=== PATIENT | female | born 1940 | race Caucasian/White ===

== ENCOUNTER 2016-10-31 08:49 | Emergency (ER) | payer OTHER, MEDICARE ==
--- NOTE | 2016-10-31 10:07 | DIAGNOSTIC IMAGING REPORT ---
PROCEDURE: XR CHEST 1 VIEW INDICATION: CHEST PAIN, initial encounter TECHNIQUE: Portable AP view ( 09:19 a.m). COMPARISON: None. FINDINGS: Lungs are clear. Heart and mediastinum are normal. Thorax is normal. IMPRESSION: 1. Negative chest.
--- NOTE | 2016-10-31 12:26 | ED NURSING NOTES ---
Clinical Report - Nurses [facility] [address] [place] [address] 10/31/2016 8:51 Patient: ZAMZAM EARL TRIAGE Triage time 08:45. Acuity: LEVEL 3. Chief Complaint: (Substernal chest pressure. Onset on waking this am, also SOB. This episode lasted approx 1 hour.). 09:10. SEPSIS SCREEN: Sepsis Screen. Negative (no infection suspected/documented). MAY COMA SCORE: May Coma Scale: 15- eyes open spontaneously (4); best verbal response- oriented x 4 (5); best motor response- obeys commands (6). --09:13 Oliver Vail R.N. 08:59 10/31/16. BP: 180/82. HR: 58. RR: 16. O2 saturation: 98% on room air. Temp: 97.7 F (oral). Pain level now: 11/28. --09:13 Oliver Vail R.N. Weight: 53.5 kg stated. Height/Length: 63 inches Per Patient. BMI: 20.9. --09:08 Oliver Vail R.N. Medications Lisinopril Oral (Tablet 40 mg) 1 tablet, daily. --09:02 Oliver Vail R.N. Aspirin Oral 81mg. --09:02 Oliver Vail R.N. Carvedilol Oral (Tablet 25 mg) 1 tablet, BID. --09:14 Oliver Vail R.N. Lansoprazole Oral (Capsule Delayed Release 15 mg) 1 capsule, daily (15mg). --09:46 Oliver Vail R.N. HydrALAZINE HCl Oral (Tablet 10 mg) 1 tablet, TID. --09:48 Oliver Vail R.N. Rosuvastatin Calcium Oral (Tablet 5 mg) 1 tablet, at bedtime. --09:49 Oliver Vail R.N. Levothyroxine Sodium Oral (Tablet 50 mcg) 1 tablet, daily. --09:50 Oliver Vail R.N. FLUoxetine HCl Oral (Capsule 10 mg) 1 capsule, daily. --09:51 Oliver Vail R.N. Cardizem LA Oral (Tablet Extended Release 24 Hour 120 mg) 1 tablet, daily. --09:52 Oliver Vail R.N. Centrum Silver Oral. --09:53 Oliver Vail R.N. The following entry was struck and corrected by Oliver Vail R.N., 09:48 (10/31/16) Reason for correction - other(correction). <<STRICKEN ENTRY-- Lisinopril Oral. --09:02 Oliver Vail R.N. --END STRIKE>> The following entry was struck and corrected by Oliver Vail R.N., 09:47 (10/31/16) Reason for correction - other(correction). <<STRICKEN ENTRY-- Carvedilol Oral. --09:14 Oliver Vail R.N. --END STRIKE>> The following entry was struck and corrected by Oliver Vail R.N., 09:47 (10/31/16) Reason for correction - other(correction). <<STRICKEN ENTRY-- Aspirin Oral. --09:02 Oliver Vail R.N. --END STRIKE>>. Allergies Meds - Can't Remember. --09:54 Oliver Vail R.N. History Arrived by EMS, and (A47). Historian: patient. 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 SOCIAL HX: Never smoker. No alcohol use or drug use. ABUSE ASSESSMENT: No report of abuse. --09:13 Oliver Vail R.N. PROBLEMS: NSTEMI. Hypertension. --09:07 Oliver Vail R.N. Chronic renal disease. --09:11 Oliver Vail R.N. ADDITIONAL SURGERIES: Gallbladder Surgery. Hysterectomy. Thyroid Surgery. --09:07 Oliver Vail R.N. The following entry was struck by Ihsan Townsend MD, 11:12 Reason - other <<STRICKEN ENTRY-- Cardiac Catheterization. --11:12 Ihsan Townsend MD --END STRIKE>>. Interventions ID band on patient. To treatment room. --09:13 Oliver Vail R.N. PHYSICAL ASSESSMENT 09:14 10/31/16. To room via stretcher. GENERAL / NEURO / PSYCH: Alert. Oriented X 4. Appears in no acute distress. HEENT: Mucous membranes are pink. RESPIRATORY: Respirations not labored. Chest wall tenderness (2/10 substernal chest pressure). Breath sounds within normal limits. CVS: Normal sinus rhythm noted. Heart sounds within normal limits. Pulses within normal limits. Capillary refill less than 2 seconds. GI / : Abdomen soft and nontender. EXTREMITIES: No lower extremity edema. SKIN: Skin is warm and dry. Normal skin turgor. Skin is non-tender. --09:16 Oliver Vail R.N. NURSING PROGRESS NOTES 09:00 10/31/2016 Site #1 started via IV in the left wrist with an 20g angiocath, with aseptic technique and good blood return; one attempt. Blood drawn: rainbow set. Labeled in the presence of the patient and sent to the lab. Saline lock flushed with 10 mL saline. --09:40 Oliver Vail R.N. EKG time: (09:05). EKG was performed by a tech and shown to the ED physician. --10:01 Jaleesa Duran late entry -09:16. Cardiac rhythm: sinus bradycardia. athletic monitor, pulse oximeter and NIBP monitor placed on patient; compliance monitor- Lead II and V5; monitor alarms on. Patient gowned. Head of bed elevated. Reassurance given. Two patient identifiers checked. Call light placed in reach. Side rails up x 2. Bed placed in lowest position. Brakes of bed on. Patient ready for evaluation- chart flagged. --10:27 Oliver Vail R.N. 09:00 10/31/16. BP: 173/60. HR: 63. RR: 16. O2 saturation: 98% on room air. Pain level now: 0/10. --10:28 Oliver Vail R.N. 09:30 10/31/16. BP: 174/62. HR: 59. RR: 17. O2 saturation: 99% on room air. Pain level now: 0/10. --10:31 Oliver Vail R.N. 10:30 10/31/16. BP: 165/59. HR: 59. RR: 15. O2 saturation: 98% on room air. Pain level now: 0/10. --10:32 Oliver Vail R.N. Patient ID band checked for patient name: patient confirmed. Instructions provided to collect clean catch urine and patient verbalized understanding. Clean catch urine collected with return of yellow-colored clear urine; sample sent to lab for urinalysis and culture. Specimen labeled in the presence of the patient. --11:43 Divine Sullivan R.N. 11:00 10/31/16. BP: 167/68. HR: 67. RR: 15. O2 saturation: 99% on room air. Pain level now: 0/10. --12:18 Oliver Vail R.N. 11:10/31/16. BP: 186/64. HR: 60. RR: 15. O2 saturation: 97% on room air. Pain level now: 0/10. --12:18 lOiver Vail R.N. 12:10/31/16. BP: 176/64. HR: 59. RR: 18. O2 saturation: 94% on room air. Pain level now: 0/10. --12:19 Oliver Vail R.N. 12:10/31/16. BP: 167/56. HR: 55. RR: 18. O2 saturation: 95% on room air. Pain level now: 0/10. --14:08 Oliver Vail R.N. 13:10/31/16. BP: 178/73. HR: 55. RR: 14. O2 saturation: 96% on room air. Pain level now: 0/10. --14:09 Oliver Vail R.N. 13:10/31/16. BP: 185/60. HR: 64. RR: 16. O2 saturation: 96% on room air. Pain level now: 0/10. --14:09 Oliver Vail R.N. 14:14 10/31/16. Cardiac rhythm: normal sinus rhythm. athletic monitor, pulse oximeter and NIBP monitor placed on patient; compliance monitor- Lead II and V5; monitor alarms on. Head of bed elevated. Reassurance given. The patient reports no complaints and she is calm and resting quietly. ( FYI - Pt has taken the following of her meds today: Carvedilol, Lisinopril, Hydralazine, Fluoxetine.). Call light placed in reach. Side rails up x 2. Bed placed in lowest position. Brakes of bed on. --14:16 Oliver Vail R.N. 14:00 10/31/16. BP: 189/70. HR: 63. RR: 16. O2 saturation: 98% on room air. Pain level now: 0/10. --15:32 Oliver Vail R.N. 14:30 10/31/16. BP: 195/63. HR: 58. RR: 14. O2 saturation: 96% on room air. Pain level now: 0/10. --15:35 Oliver Vail R.N. 17:20 10/31/2016 Hydralazine IVP 10 mg given over 5 minute(s) via site #1. Allergies verified and confirmed 5 rights. IV patency established. IV site checked: no pain, redness, or swelling. IV flushed thoroughly pre- and post-medication administration. IVP given by RN. --17:47 Oliver Vail R.N. 17:47 10/31/2016 Hydralazine IVP Response: no adverse reaction symptoms have improved. --17:47 Oliver Vail R.N. late entry -16:30. ( FYI - Pt took her own 1630 dose of Hydralazine and Carvedilol per MD.). --17:50 Oliver Vail R.N. 17:30 10/31/16. BP: 135/53. HR: 81. RR: 18. O2 saturation: 97% on room air. Pain level now: 0/10. --17:51 Oliver Vail R.N. 17:52 10/31/16. ( Pt ate 30% of her dinner.). --17:52 Oliver Vail R.N. 17:00 10/31/16. BP: 174/59. HR: 62. RR: 15. O2 saturation: 97% on room air. Pain level now: 0/10. --17:53 Oliver Vail R.N. 16:00 10/31/16. BP: 202/63. HR: 69. RR: 16. O2 saturation: 97% on room air. Pain level now: 0/10. --17:54 Oliver Vail R.N. 16:30 10/31/16. BP: 182/95. HR: 72. RR: 18. O2 saturation: 97% on room air. Pain level now: 0/10. --17:55 Oliver Vail R.N. 15:00 10/31/16. HR: 61. RR: 15. O2 saturation: 97% on room air. Pain level now: 0/10. --17:56 Oliver Vail R.N. DISPOSITION / DISCHARGE 14:50. Report was given to a nurse via a phone call. Report included patient's care, treatment, medications, reviewed medication reconcilliation, and condition (including any recent changes or anticipated changes). All questions were answered. Report was acknowledged. (EDWARD Lora). --14:57 Oliver Vail R.N. 17:45 10/31/16. Report was given to a nurse via a phone call. Report included patient's care, treatment, medications, reviewed medication reconcilliation, and condition (including any recent changes or anticipated changes). All questions were answered. Report was acknowledged. --17:45 Oliver Vail R.N. 18:24 10/31/2016 Site #[address] upon transfer; patent, no pain and no signs of infection or infiltration. Good blood return present. Flushed with 10 mL saline; flushes easily. --18:25 Oliver Vail R.N. 18:25 10/31/16. Departure time: 1824. Cardiac rhythm: normal sinus rhythm. Condition at departure: improved and stable. Transferred to [facility]. Summary of care provided to transport team and transfer facility via paper (1824). Transported via ambulance by nurse with monitor, defibrillator, IV, O2 and emergency medications (NWA). ( NWA here at 1800 for transport.). --18:25 Oliver Vail R.N. 18:00 10/31/16. BP: 112/48. HR: 76. RR: 16. O2 saturation: 97% on room air. Temp: 97.7 F (oral). Pain level now: 0/10. --18:25 Oliver Vail R.N. late entry -18:25. Transferred ([facility] Room A415.). --18:45 Oliver Vail R.N. Locked/Released at 10/31/2016 18:46 by Oliver Vail R.N.
--- NOTE | 2016-10-31 12:26 | ED ORDER SUMMARY ---
..... Patient: ZAMZAM EARL OrderSheet [facility] VisitID: [id number] [address] [place] [address] 76y, F Registration Date/Time: 10/31/2016 ORDER SHEET Weight: 53.5 kg (stated) Allergies: Meds - Can't Remember, IV Contrast GENERAL ORDERS: Chest 1V Urgent (09:10/31/2016 Blake COWART) (Ack 9:34 Saranya) (18:46 JSimbeck R.N.) Hub Cutter Apprentice (Continuous) (:10/31/2016 Blake COWART) (Ack 9:34 Saranya) (9:40 JSimbeck R.N.) Cardiac Panel Stat (:10/31/2016 Blake COWART) (Ack 9:34 Saranya) (9:41 JSimbeck R.N.) BNP Urgent (:10/31/2016 Blake COWART) (Ack 9:34 Saranya) (9:41 JSimbeck R.N.) Oxygen (2 L/min) (NC) (:10/31/2016 Blake COWART) (Ack 9:34 Saranya) (9:40 JSimbeck R.N.) Pulse oximeter (:10/31/2016 Blake COWART) (Ack 9:34 Saranya) (9:40 JSimbeck R.N.) EKG - ER Stat (:10/31/2016 Blake COWART) (9:33 RKaruga) D-Dimer Urgent (09:10/31/2016 Blake COWART) (Ack 9:34 Saranya) (9:41 JSimbeck R.N.) TSH Urgent (11:10/31/2016 Wendy COWART) (Ack 11:58 LTapper) (Cancelled: Duplicate Order12:00 LTapper) TSH Urgent (11:10/31/2016 Wendy COWART) (Collected 11:59 LTapper) (15:39 JSimbeck R.N.) MEDICATION ORDERS: IV FLUIDS: IV Saline Lock (:10/31/2016 Blake COWART) (9:40 JSimbeck R.N.) Hydralazine IV 10 mg (NOW) (17:11 10/31/2016 Luzma Garrido verbal order read back to Dawson COWART) (17:47 Luzma Garrido) ORDER SHEET NOTES: [Electronically signed by Oliver Vail R.N. (18:46 10/31/2016)] [Electronically signed by Ihsan Townsend MD (09:39 11/01/2016)] [Electronically locked/signed by Oliver Vail R.N. (18:46 10/31/2016)]
--- NOTE | 2016-10-31 12:26 | ED CLINICAL REPORT ---
Clinical Report - Physicians/Mid Levels [facility] [address] [place] [address] 10/31/2016 8:51 Patient: ZAMZAM EARL Time Seen: 09:08. Arrived- By ambulance. Historian- patient. History limited by vague historian. HISTORY OF PRESENT ILLNESS Chief Complaint: CHEST PAIN. At its maximum, severity described as 6 / 10. When seen in the E.D., it was gone. Modifying factors- worsened by exertion. It is described as pressure and it is described as located in the central chest area and radiating to the neck. This started today at about 5:30 AM; Lasted about 50 minutes and is now gone. It was gradual in onset. Onset during sleep. No nausea, vomiting or diaphoresis. (ASA in the field). She has had mild difficulty breathing. Similar symptoms previously: Once. Diagnosis: MO. ( She had a similar event in July 2016 and she had a "slight heart attack"). REVIEW OF SYSTEMS The patient has had chills. No fever, sweats, calf pain, pedal edema or palpitations. No abdominal pain, black stools, bloody stools, nausea or vomiting. She has had a mild nonproductive cough. She has had mild constipation (chronically). She has had incontinence of urine (for several months - She attributes this to her medicine). All systems otherwise negative, except as recorded above. PAST H[place] Problems: Hypothyroidism. Chronic renal disease. NSTEMI. Hypertension. Additional Surgeries: Gallbladder Surgery. Hysterectomy. Thyroid Surgery. Medications: Centrum Silver Oral. Cardizem LA Oral (Tablet Extended Release 24 Hour 120 mg) 1 tablet, daily. FLUoxetine HCl Oral (Capsule 10 mg) 1 capsule, daily. Levothyroxine Sodium Oral (Tablet 50 mcg) 1 tablet, daily. Rosuvastatin Calcium Oral (Tablet 5 mg) 1 tablet, at bedtime. HydrALAZINE HCl Oral (Tablet 10 mg) 1 tablet, TID. Lansoprazole Oral (Capsule Delayed Release 15 mg) 1 capsule, daily (15mg). Carvedilol Oral (Tablet 25 mg) 1 tablet, BID. Aspirin Oral 81mg. Lisinopril Oral (Tablet 40 mg) 1 tablet, daily. Allergies: IV Contrast. Meds - Can't Remember. SOCIAL HISTORY Never smoker. No alcohol use or drug use. Residence: [place]. FAMILY HISTORY Hypertension in first-degree relative (mother and father) and grandparent; stroke in first-degree relative (mother); cancer in first-degree relative (father). ADDITIONAL NOTES The nursing notes have been reviewed. PHYSICAL EXAM Vital Signs: 10/31/2016 08:59 BP: 180/82. HR: 58. RR: 16. O2 saturation: 98%. Temp: 97.7 F. Pain level now: 11/28. Have been reviewed. Appearance: Alert. No acute distress. She appears frail and elderly. Eyes: Pupils equal, round and reactive to light. ENT: Pharynx normal. Neck: Normal inspection. Neck supple. No JVD. CVS: Normal heart rate and rhythm. Heart sounds normal. Respiratory: No respiratory distress. Breath sounds normal. Abdomen: Soft and nontender. Bowel sounds normal. No organomegaly. No mass. Back: Normal external inspection. No CVA tenderness. Skin: Skin warm and dry. Normal skin color. No rash. Normal skin turgor. Extremities: Extremities exhibit normal ROM. No calf tenderness. No lower extremity edema. LABS, X-RAYS, AND EKG EKG: No acute process. Rate: 59. Prior EKG unavailable. The study has been independently viewed by me. Chest X-ray: No acute disease. The X-rays were interpreted by the radiologist and contemporaneously by me. Laboratory Tests: CBC w Diff: (JOSE LUIS: 10/31/2016 08:50) ( MsgRcvd 10/31/2016 09:24) Final results Test Result Flag Units (Reference) WHITE BLOOD COUNT 12.1 H K/uL (4.5-11.5) RED BLOOD COUNT 4.71 M/uL (4.00-5.20) HEMOGLOBIN 14.3 gm/dL (12.0-16.0) HEMATOCRIT 43.4 % (36.0-46.0) MEAN CELL VOLUME 92 fL (80-100) MEAN CORPUSCULAR HGB 30 pg (26-34) MEAN CORPUSCULAR HGB CONC 33 g/dL (31-37) RED CELL DISTRIBUTION WIDTH 14.6 % (11.6-14.8) PLATELET COUNT 203 K/uL (150-400) NEUTROPHIL % 37.6 L % (50-75) LYMPH % 56.5 H % (25-40) MONO % 4.6 % (3-14) EOSINOPHIL % 1.0 % (0-4) BASOPHIL % 0.3 % (0-2) [id number]: (JOSE LUIS: 10/31/2016 08:50) ( [facility] 10/31/2016 09:25) Final results Test Result Flag Units (Reference) D-DIMER QUANTITATIVE 0.39 ug/mLFEU (0.27-0.52) The primary value of this quantitative assay relates toits negative predictive value (i.e. exclusion) of pulmonaryembolism/deep vein thrombosis/DIC.Elevated levels of d-dimer may also occur with:, age, cancer, inflammation, liver disease,post-op, infection, hematoma, coronary disease, peripheralarteriopathy, bleeding disorders and thrombolytic treatment.Results should be correlated with other clinical andradiological data.Testing Methodology: Latex Immunoassay BNP: (JOSE LUIS: 10/31/2016 08:50) ( [facility] 10/31/2016 10:14) Final results Test Result Flag Units (Reference) B-TYPE NATRIURETIC PEPTIDE 53.7 pg/ml (5-100) CHEM 13 PANEL: (JOSE LUIS: 10/31/2016 08:50) ( [facility] 10/31/2016 11:42) Final results Test Result Flag Units (Reference) GLUCOSE 121 H mg/dL (70-110) BUN 18 mg/dL (7-18) CREATININE 1.2 mg/dL (0.6-1.3) Estimated GFR 46.55 mL/min Estimated GFR- 56.42 mL/min Note: Persistent reduction over 3 months in eGFR<60 mL/min/1.73 m2 defines CKD. Patients with eGFR values>=60 mL/min/1.73 m2 may also have CKD if evidence ofpersistent proteinuria. Additional information may be foundat www.kidney.org. SODIUM 145 mmol/L (136-145) POTASSIUM 4.1 mmol/L (3.5-5.1) CHLORIDE 106 mmol/L (98-107) CARBON DIOXIDE 29 mmol/L (21-32) CALCIUM 8.8 mg/dL (8.5-10.1) TOTAL PROTEIN 7.0 g/dL (6.4-8.2) ALBUMIN 4.1 g/dL (3.3-5.0) BILIRUBIN, TOTAL 0.5 mg/dL (0.0-1.0) ALKALINE PHOSPHATASE 72 U/L (46-116) AST (SGOT) 18 U/L (15-37) ALT (SGPT) 25 U/L (12-78) MAGNESIUM 1.8 mg/dL (1.8-2.4) CPK 126 U/L (24-260) TROPONIN I 0.05 ng/mL (0.00-1.5) TROPONIN REFERENCE RANGE:<0.1 NEGATIVE0.1-1.5 INDETERMINANT>1.5 POSITIVE THYROID STIMULATING HORMONE 8.338 H uIU/mL (0.30-3.74) . PROGRESS AND PROCEDURES Course of Care: Patient is stable. Discussed case with hospitalist, (Vesta - She saw the patient in the ER). Reviewed test results and need for additional work-up. Agreed upon treatment plan, need for patient follow-up and decision to place in observation. Patient/family counseled. Old medical records ordered. Old records unavailable. Disposition orders written (in [facility]). Disposition: Admitted. Observation. CLINICAL IMPRESSION Chest pain. Hypothyroidism. (Electronically signed by Ihsan Townsend MD 11/01/2016 9:39)
--- NOTE | 2016-10-31 12:26 | ED ORDER SUMMARY ---
..... Patient: ZAMZAM EARL OrderSheet [facility] VisitID: [id number] [address] [place] [address] 76y, F Registration Date/Time: 10/31/2016 ORDER SHEET Weight: 53.5 kg (stated) Allergies: Meds - Can't Remember, IV Contrast GENERAL ORDERS: Chest 1V Urgent (09:10/31/2016 Blake COWART) (Ack 9:34 Saranya) (18:46 JSimbeck R.N.) Signal Maintainer (Continuous) (:10/31/2016 Blake COWART) (Ack 9:34 Saranya) (9:40 JSimbeck R.N.) Cardiac Panel Stat (:10/31/2016 Blake COWART) (Ack 9:34 Saranya) (9:41 JSimbeck R.N.) BNP Urgent (:10/31/2016 Blake COWART) (Ack 9:34 Saranya) (9:41 JSimbeck R.N.) Oxygen (2 L/min) (NC) (:10/31/2016 Blake COWART) (Ack 9:34 Saranya) (9:40 JSimbeck R.N.) Pulse oximeter (:10/31/2016 Blake COWART) (Ack 9:34 Saranya) (9:40 JSimbeck R.N.) EKG - ER Stat (:10/31/2016 Blake COWART) (9:33 RKaruga) D-Dimer Urgent (09:10/31/2016 Blake COWART) (Ack 9:34 Saranya) (9:41 JSimbeck R.N.) TSH Urgent (11:10/31/2016 Wendy COWART) (Ack 11:58 LTapper) (Cancelled: Duplicate Order12:00 LTapper) TSH Urgent (11:10/31/2016 Wendy COWART) (Collected 11:59 LTapper) (15:39 JSimbeck R.N.) MEDICATION ORDERS: IV FLUIDS: IV Saline Lock (:10/31/2016 Blake COWART) (9:40 JSimbeck R.N.) Hydralazine IV 10 mg (NOW) (17:11 10/31/2016 Luzma Garrido verbal order read back to Dawson COWART) (17:47 Luzma Garrido) ORDER SHEET NOTES: [Electronically signed by Oliver Vail R.N. (18:46 10/31/2016)] [Electronically signed by Ihsan Townsend MD (09:39 11/01/2016)] [Electronically locked/signed by Oliver Vail R.N. (18:46 10/31/2016)]
--- NOTE | 2016-10-31 12:26 | ED CLINICAL REPORT ---
Clinical Report - Physicians/Mid Levels [facility] [address] [place] [place] [address] 10/31/2016 8:51 Patient: ZAMZAM EARL Time Seen: 09:08. Arrived- By ambulance. Historian- patient. History limited by vague historian. HISTORY OF PRESENT ILLNESS Chief Complaint: CHEST PAIN. At its maximum, severity described as 6 / 10. When seen in the E.D., it was gone. Modifying factors- worsened by exertion. It is described as pressure and it is described as located in the central chest area and radiating to the neck. This started today at about 5:30 AM; Lasted about 50 minutes and is now gone. It was gradual in onset. Onset during sleep. No nausea, vomiting or diaphoresis. (ASA in the field). She has had mild difficulty breathing. Similar symptoms previously: Once. Diagnosis: NM. ( She had a similar event in July 2016 and she had a "slight heart attack"). REVIEW OF SYSTEMS The patient has had chills. No fever, sweats, calf pain, pedal edema or palpitations. No abdominal pain, black stools, bloody stools, nausea or vomiting. She has had a mild nonproductive cough. She has had mild constipation (chronically). She has had incontinence of urine (for several months - She attributes this to her medicine). All systems otherwise negative, except as recorded above. PAST HISTORY [place] Problems: Hypothyroidism. Chronic renal disease. NSTEMI. Hypertension. Additional Surgeries: Gallbladder Surgery. Hysterectomy. Thyroid Surgery. Medications: Centrum Silver Oral. Cardizem LA Oral (Tablet Extended Release 24 Hour 120 mg) 1 tablet, daily. FLUoxetine HCl Oral (Capsule 10 mg) 1 capsule, daily. Levothyroxine Sodium Oral (Tablet 50 mcg) 1 tablet, daily. Rosuvastatin Calcium Oral (Tablet 5 mg) 1 tablet, at bedtime. HydrALAZINE HCl Oral (Tablet 10 mg) 1 tablet, TID. Lansoprazole Oral (Capsule Delayed Release 15 mg) 1 capsule, daily (15mg). Carvedilol Oral (Tablet 25 mg) 1 tablet, BID. Aspirin Oral 81mg. Lisinopril Oral (Tablet 40 mg) 1 tablet, daily. Allergies: IV Contrast. Meds - Can't Remember. SOCIAL HISTORY Never smoker. No alcohol use or drug use. Residence: [place]. FAMILY HISTORY Hypertension in first-degree relative (mother and father) and grandparent; stroke in first-degree relative (mother); cancer in first-degree relative (father). ADDITIONAL NOTES The nursing notes have been reviewed. PHYSICAL EXAM Vital Signs: 10/31/2016 08:59 BP: 180/82. HR: 58. RR: 16. O2 saturation: 98%. Temp: 97.7 F. Pain level now: 11/28. Have been reviewed. Appearance: Alert. No acute distress. She appears frail and elderly. Eyes: Pupils equal, round and reactive to light. ENT: Pharynx normal. Neck: Normal inspection. Neck supple. No JVD. CVS: Normal heart rate and rhythm. Heart sounds normal. Respiratory: No respiratory distress. Breath sounds normal. Abdomen: Soft and nontender. Bowel sounds normal. No organomegaly. No mass. Back: Normal external inspection. No CVA tenderness. Skin: Skin warm and dry. Normal skin color. No rash. Normal skin turgor. Extremities: Extremities exhibit normal ROM. No calf tenderness. No lower extremity edema. LABS, X-RAYS, AND EKG EKG: No acute process. Rate: 59. Prior EKG unavailable. The study has been independently viewed by me. Chest X-ray: No acute disease. The X-rays were interpreted by the radiologist and contemporaneously by me. Laboratory Tests: CBC w Diff: (JOSE LUIS: 10/31/2016 08:50) ( MsgRcvd 10/31/2016 09:24) Final results Test Result Flag Units (Reference) WHITE BLOOD COUNT 12.1 H K/uL (4.5-11.5) RED BLOOD COUNT 4.71 M/uL (4.00-5.20) HEMOGLOBIN 14.3 gm/dL (12.0-16.0) HEMATOCRIT 43.4 % (36.0-46.0) MEAN CELL VOLUME 92 fL (80-100) MEAN CORPUSCULAR HGB 30 pg (26-34) MEAN CORPUSCULAR HGB CONC 33 g/dL (31-37) RED CELL DISTRIBUTION WIDTH 14.6 % (11.6-14.8) PLATELET COUNT 203 K/uL (150-400) NEUTROPHIL % 37.6 L % (50-75) LYMPH % 56.5 H % (25-40) MONO % 4.6 % (3-14) EOSINOPHIL % 1.0 % (0-4) BASOPHIL % 0.3 % (0-2) [id number]: (JOSE LUIS: 10/31/2016 08:50) ( [facility] 10/31/2016 09:25) Final results Test Result Flag Units (Reference) D-DIMER QUANTITATIVE 0.39 ug/mLFEU (0.27-0.52) The primary value of this quantitative assay relates toits negative predictive value (i.e. exclusion) of pulmonaryembolism/deep vein thrombosis/DIC.Elevated levels of d-dimer may also occur with:, age, cancer, inflammation, liver disease,post-op, infection, hematoma, coronary disease, peripheralarteriopathy, bleeding disorders and thrombolytic treatment.Results should be correlated with other clinical andradiological data.Testing Methodology: Latex Immunoassay BNP: (JOSE LUIS: 10/31/2016 08:50) ( [facility] 10/31/2016 10:14) Final results Test Result Flag Units (Reference) B-TYPE NATRIURETIC PEPTIDE 53.7 pg/ml (5-100) CHEM 13 PANEL: (JOSE LUIS: 10/31/2016 08:50) ( [facility] 10/31/2016 11:42) Final results Test Result Flag Units (Reference) GLUCOSE 121 H mg/dL (70-110) BUN 18 mg/dL (7-18) CREATININE 1.2 mg/dL (0.6-1.3) Estimated GFR 46.55 mL/min Estimated GFR- 56.42 mL/min Note: Persistent reduction over 3 months in eGFR<60 mL/min/1.73 m2 defines CKD. Patients with eGFR values>=60 mL/min/1.73 m2 may also have CKD if evidence ofpersistent proteinuria. Additional information may be foundat www.[email or web address].org. SODIUM 145 mmol/L (136-145) POTASSIUM 4.1 mmol/L (3.5-5.1) CHLORIDE 106 mmol/L (98-107) CARBON DIOXIDE 29 mmol/L (21-32) CALCIUM 8.8 mg/dL (8.5-10.1) TOTAL PROTEIN 7.0 g/dL (6.4-8.2) ALBUMIN 4.1 g/dL (3.3-5.0) BILIRUBIN, TOTAL 0.5 mg/dL (0.0-1.0) ALKALINE PHOSPHATASE 72 U/L (46-116) AST (SGOT) 18 U/L (15-37) ALT (SGPT) 25 U/L (12-78) MAGNESIUM 1.8 mg/dL (1.8-2.4) CPK 126 U/L (24-260) TROPONIN I 0.05 ng/mL (0.00-1.5) TROPONIN REFERENCE RANGE:<0.1 NEGATIVE0.1-1.5 INDETERMINANT>1.5 POSITIVE THYROID STIMULATING HORMONE 8.338 H uIU/mL (0.30-3.74) . PROGRESS AND PROCEDURES Course of Care: Patient is stable. Discussed case with hospitalist, (Vesta - She saw the patient in the ER). Reviewed test results and need for additional work-up. Agreed upon treatment plan, need for patient follow-up and decision to place in observation. Patient/family counseled. Old medical records ordered. Old records unavailable. Disposition orders written (in [facility]). Disposition: Admitted. Observation. CLINICAL IMPRESSION Chest pain. Hypothyroidism. (Electronically signed by Ihsan Townsend MD 11/01/2016 9:39)
--- NOTE | 2016-10-31 12:26 | ED NURSING NOTES ---
Clinical Report - Nurses [place] [address] [place] [address] 10/31/2016 8:51 Patient: ZAMZAM EARL TRIAGE Triage time 08:45. Acuity: LEVEL 3. Chief Complaint: (Substernal chest pressure. Onset on waking this am, also SOB. This episode lasted approx 1 hour.). 09:10. SEPSIS SCREEN: Sepsis Screen. Negative (no infection suspected/documented). MAY COMA SCORE: May Coma Scale: 15- eyes open spontaneously (4); best verbal response- oriented x 4 (5); best motor response- obeys commands (6). --09:13 Oliver Vail R.N. 08:59 10/31/16. BP: 180/82. HR: 58. RR: 16. O2 saturation: 98% on room air. Temp: 97.7 F (oral). Pain level now: 11/28. --09:13 Oliver Vail R.N. Weight: 53.5 kg stated. Height/Length: 63 inches Per Patient. BMI: 20.9. --09:08 Oliver Vail R.N. Medications Lisinopril Oral (Tablet 40 mg) 1 tablet, daily. --09:02 Oliver Vail R.N. Aspirin Oral 81mg. --09:02 Oliver Vail R.N. Carvedilol Oral (Tablet 25 mg) 1 tablet, BID. --09:14 Oliver Vail R.N. Lansoprazole Oral (Capsule Delayed Release 15 mg) 1 capsule, daily (15mg). --09:46 Oliver Vail R.N. HydrALAZINE HCl Oral (Tablet 10 mg) 1 tablet, TID. --09:48 Oliver Vail R.N. Rosuvastatin Calcium Oral (Tablet 5 mg) 1 tablet, at bedtime. --09:49 Oliver Vail R.N. Levothyroxine Sodium Oral (Tablet 50 mcg) 1 tablet, daily. --09:50 Oliver Vail R.N. FLUoxetine HCl Oral (Capsule 10 mg) 1 capsule, daily. --09:51 Oliver Vail R.N. Cardizem LA Oral (Tablet Extended Release 24 Hour 120 mg) 1 tablet, daily. --09:52 Oliver Vail R.N. Centrum Silver Oral. --09:53 Oliver Vail R.N. The following entry was struck and corrected by Oliver Vail R.N., 09:48 (10/31/16) Reason for correction - other(correction). <<STRICKEN ENTRY-- Lisinopril Oral. --09:02 Oliver Vail R.N. --END STRIKE>> The following entry was struck and corrected by Oliver Vail R.N., 09:47 (10/31/16) Reason for correction - other(correction). <<STRICKEN ENTRY-- Carvedilol Oral. --09:14 Oliver Vail R.N. --END STRIKE>> The following entry was struck and corrected by Oliver Vail R.N., 09:47 (10/31/16) Reason for correction - other(correction). <<STRICKEN ENTRY-- Aspirin Oral. --09:02 Oliver Vail R.N. --END STRIKE>>. Allergies Meds - Can't Remember. --09:54 Oliver Vail R.N. History Arrived by EMS, and (A47). Historian: patient. Treatment [employer]: Took aspirin. SOCIAL HX: Never smoker. No alcohol use or drug use. ABUSE ASSESSMENT: No report of abuse. --09:13 Oliver Vail R.N. PROBLEMS: NSTEMI. Hypertension. --09:07 Oliver Vail R.N. Chronic renal disease. --09:11 Oliver Vail R.N. ADDITIONAL SURGERIES: Gallbladder Surgery. Hysterectomy. Thyroid Surgery. --09:07 Oliver Vail R.N. The following entry was struck by Ihsan Townsend MD, 11:12 Reason - other <<STRICKEN ENTRY-- Cardiac Catheterization. --11:12 Ihsan Townsend MD --END STRIKE>>. Interventions ID band on patient. To treatment room. --09:13 Oliver Vail R.N. PHYSICAL ASSESSMENT 09:14 10/31/16. To room via stretcher. GENERAL / NEURO / PSYCH: Alert. Oriented X 4. Appears in no acute distress. HEENT: Mucous membranes are pink. RESPIRATORY: Respirations not labored. Chest wall tenderness (2/10 substernal chest pressure). Breath sounds within normal limits. CVS: Normal sinus rhythm noted. Heart sounds within normal limits. Pulses within normal limits. Capillary refill less than 2 seconds. GI / : Abdomen soft and nontender. EXTREMITIES: No lower extremity edema. SKIN: Skin is warm and dry. Normal skin turgor. Skin is non-tender. --09:16 Oliver Vail R.N. NURSING PROGRESS NOTES 09:00 10/31/2016 Site #1 started via IV in the left wrist with an 20g angiocath, with aseptic technique and good blood return; one attempt. Blood drawn: rainbow set. Labeled in the presence of the patient and sent to the lab. Saline lock flushed with 10 mL saline. --09:40 Oliver Vail R.N. EKG time: (09:05). EKG was performed by a tech and shown to the ED physician. --10:01 Jaleesa Duran late entry -09:16. Cardiac rhythm: sinus bradycardia. medical superintendent, pulse oximeter and NIBP monitor placed on patient; lan engineer- Lead II and V5; monitor alarms on. Patient gowned. Head of bed elevated. Reassurance given. Two patient identifiers checked. Call light placed in reach. Side rails up x 2. Bed placed in lowest position. Brakes of bed on. Patient ready for evaluation- chart flagged. --10:27 Oliver Vail R.N. 09:00 10/31/16. BP: 173/60. HR: 63. RR: 16. O2 saturation: 98% on room air. Pain level now: 0/10. --10:28 Oliver Vail R.N. 09:30 10/31/16. BP: 174/62. HR: 59. RR: 17. O2 saturation: 99% on room air. Pain level now: 0/10. --10:31 Oliver Vail R.N. 10:30 10/31/16. BP: 165/59. HR: 59. RR: 15. O2 saturation: 98% on room air. Pain level now: 0/10. --10:32 Oliver Vail R.N. Patient ID band checked for patient name: patient confirmed. Instructions provided to collect clean catch urine and patient verbalized understanding. Clean catch urine collected with return of yellow-colored clear urine; sample sent to lab for urinalysis and culture. Specimen labeled in the presence of the patient. --11:43 Divine Sullivan R.N. 11:00 10/31/16. BP: 167/68. HR: 67. RR: 15. O2 saturation: 99% on room air. Pain level now: 0/10. --12:18 Oliver Vail R.N. 11:10/31/16. BP: 186/64. HR: 60. RR: 15. O2 saturation: 97% on room air. Pain level now: 0/10. --12:18 Oliver Vail R.N. 12:10/31/16. BP: 176/64. HR: 59. RR: 18. O2 saturation: 94% on room air. Pain level now: 0/10. --12:19 Oliver Vail R.N. 12:10/31/16. BP: 167/56. HR: 55. RR: 18. O2 saturation: 95% on room air. Pain level now: 0/10. --14:08 Oliver Vail R.N. 13:10/31/16. BP: 178/73. HR: 55. RR: 14. O2 saturation: 96% on room air. Pain level now: 0/10. --14:09 Oliver Vail R.N. 13:10/31/16. BP: 185/60. HR: 64. RR: 16. O2 saturation: 96% on room air. Pain level now: 0/10. --14:09 Oliver Vail R.N. 14:14 10/31/16. Cardiac rhythm: normal sinus rhythm. medical superintendent, pulse oximeter and NIBP monitor placed on patient; lan engineer- Lead II and V5; monitor alarms on. Head of bed elevated. Reassurance given. The patient reports no complaints and she is calm and resting quietly. ( FYI - Pt has taken the following of her meds today: Carvedilol, Lisinopril, Hydralazine, Fluoxetine.). Call light placed in reach. Side rails up x 2. Bed placed in lowest position. Brakes of bed on. --14:16 Oliver Vail R.N. 14:00 10/31/16. BP: 189/70. HR: 63. RR: 16. O2 saturation: 98% on room air. Pain level now: 0/10. --15:32 Oliver Vail R.N. 14:30 10/31/16. BP: 195/63. HR: 58. RR: 14. O2 saturation: 96% on room air. Pain level now: 0/10. --15:35 Oliver Vail R.N. 17:20 10/31/2016 Hydralazine IVP 10 mg given over 5 minute(s) via site #1. Allergies verified and confirmed 5 rights. IV patency established. IV site checked: no pain, redness, or swelling. IV flushed thoroughly pre- and post-medication administration. IVP given by RN. --17:47 Oliver Vail R.N. 17:47 10/31/2016 Hydralazine IVP Response: no adverse reaction symptoms have improved. --17:47 Oliver Vail R.N. late entry -16:30. ( FYI - Pt took her own 1630 dose of Hydralazine and Carvedilol per MD.). --17:50 Oliver Vail R.N. 17:30 10/31/16. BP: 135/53. HR: 81. RR: 18. O2 saturation: 97% on room air. Pain level now: 0/10. --17:51 Oliver Vail R.N. 17:52 10/31/16. ( Pt ate 30% of her dinner.). --17:52 Oliver Vail R.N. 17:00 10/31/16. BP: 174/59. HR: 62. RR: 15. O2 saturation: 97% on room air. Pain level now: 0/10. --17:53 Oliver Vail R.N. 16:00 10/31/16. BP: 202/63. HR: 69. RR: 16. O2 saturation: 97% on room air. Pain level now: 0/10. --17:54 Oliver Vail R.N. 16:30 10/31/16. BP: 182/95. HR: 72. RR: 18. O2 saturation: 97% on room air. Pain level now: 0/10. --17:55 Oliver Vail R.N. 15:00 10/31/16. HR: 61. RR: 15. O2 saturation: 97% on room air. Pain level now: 0/10. --17:56 Oliver Vail R.N. DISPOSITION / DISCHARGE 14:50. Report was given to a nurse via a phone call. Report included patient's care, treatment, medications, reviewed medication reconcilliation, and condition (including any recent changes or anticipated changes). All questions were answered. Report was acknowledged. (EDWARD Lora). --14:57 Oliver Vail R.N. 17:45 10/31/16. Report was given to a nurse via a phone call. Report included patient's care, treatment, medications, reviewed medication reconcilliation, and condition (including any recent changes or anticipated changes). All questions were answered. Report was acknowledged. --17:45 Oliver Vail R.N. 18:24 10/31/2016 Site #[address] upon transfer; patent, no pain and no signs of infection or infiltration. Good blood return present. Flushed with 10 mL saline; flushes easily. --18:25 Oliver Vail R.N. 18:25 10/31/16. Departure time: 1824. Cardiac rhythm: normal sinus rhythm. Condition at departure: improved and stable. Transferred to [facility]. Summary of care provided to transport team and transfer facility via paper (1824). Transported via ambulance by nurse with monitor, defibrillator, IV, O2 and emergency medications ([place]). ( [facility] here at 1800 for transport.). --18:25 Oliver Vail R.N. 18:00 10/31/16. BP: 112/48. HR: 76. RR: 16. O2 saturation: 97% on room air. Temp: 97.7 F (oral). Pain level now: 0/10. --18:25 Oliver Vail R.N. late entry -18:25. Transferred ([facility] Room A415.). --18:45 Oliver Vail R.N. Locked/Released at 10/31/2016 18:46 by Oliver Vail R.N.
--- NOTE | 2016-11-01 09:39 | ED MED RECONCILIATION SUMMARY ---
Patient: ZAMZAM EARL Medication Reconciliation Report [facility] VisitID: [id number] [address] [place] [address] 76y, F Registration Date/Time: 10/31/2016 Weight: 53.5 kg Height/Length: 63 in. BMI: 20.9 ALLERGIES: IV Contrast, Meds - Can't Remember The patient's Home Medications are listed below: THE FOLLOWING MEDICATIONS NEED TO BE RECONCILED: Aspirin Oral 81mg Cardizem LA Oral (120 mg) 1 tablet, daily Carvedilol Oral (25 mg) 1 tablet, BID Centrum Silver Oral FLUoxetine HCl Oral (10 mg) 1 capsule, daily HydrALAZINE HCl Oral (10 mg) 1 tablet, TID Lansoprazole Oral (15 mg) 1 capsule, daily, 15mg Levothyroxine Sodium Oral (50 mcg) 1 tablet, daily Lisinopril Oral (40 mg) 1 tablet, daily Rosuvastatin Calcium Oral (5 mg) 1 tablet, at bedtime The source(s) of the original Home Medication information: Not obtained. The following Medications were given to the patient in the Emergency Department: Hydralazine [IVP] IVP 10 mg, administered: 10/31/2016 5:20:00 PM The following Medications were prescribed to the patient: None.
--- NOTE | 2016-11-01 09:39 | ED MAR SUMMARY ---
..... Medication Administration Record [facility] [address] [place] [address] Patient: AZMZAM EARL Visit ID: [id number] 76y, F Weight: 53.5 kg Height/Length: 63 in BMI: 20.9 ALLERGIES: Meds - Can't Remember, IV Contrast Given 17:20 10/31/2016 Oliver Vail R.N. Medication Administered: HYDRALAZINE [IVP], Dose: 10 mg IVP over 5 minute(s), Site: #1 left wrist. Medication Ordered: Hydralazine IV 10 mg (NOW).
--- NOTE | 2016-11-01 09:39 | ED DISCHARGE INSTRUCTIONS ---
Patient: ZAMZAM EARL General Instructions [facility] VisitID: [id number] [address] [place] [address] 76y, F Registration Date/Time: 10/31/2016 Chest pain. Hypothyroidism. (Electronically signed by Ihsan Townsend MD 11/01/2016 9:39)
--- NOTE | 2016-11-01 09:39 | ED MAR SUMMARY ---
..... Medication Administration Record [facility] [address] [place] [address] Patient: ZAMZAM EARL Visit ID: [id number] 76y, F Weight: 53.5 kg Height/Length: 63 in BMI: 20.9 ALLERGIES: Meds - Can't Remember, IV Contrast Given 17:20 10/31/2016 Oliver Vail R.N. Medication Administered: HYDRALAZINE [IVP], Dose: 10 mg IVP over 5 minute(s), Site: #1 left wrist. Medication Ordered: Hydralazine IV 10 mg (NOW).
--- NOTE | 2016-11-01 09:39 | ED DISCHARGE INSTRUCTIONS ---
Patient: ZAMZAM EARL General Instructions [facility] VisitID: [id number] [address] [place] [address] 76y, F Registration Date/Time: 10/31/2016 Chest pain. Hypothyroidism. (Electronically signed by Ihsan Townsend MD 11/01/2016 9:39)
--- NOTE | 2016-11-01 09:39 | ED MED RECONCILIATION SUMMARY ---
Patient: ZAMZAM EARL Medication Reconciliation Report [facility] VisitID: [id number] [address] [place] [address] 76y, F Registration Date/Time: 10/31/2016 Weight: 53.5 kg Height/Length: 63 in. BMI: 20.9 ALLERGIES: IV Contrast, Meds - Can't Remember The patient's Home Medications are listed below: THE FOLLOWING MEDICATIONS NEED TO BE RECONCILED: Aspirin Oral 81mg Cardizem LA Oral (120 mg) 1 tablet, daily Carvedilol Oral (25 mg) 1 tablet, BID Centrum Silver Oral FLUoxetine HCl Oral (10 mg) 1 capsule, daily HydrALAZINE HCl Oral (10 mg) 1 tablet, TID Lansoprazole Oral (15 mg) 1 capsule, daily, 15mg Levothyroxine Sodium Oral (50 mcg) 1 tablet, daily Lisinopril Oral (40 mg) 1 tablet, daily Rosuvastatin Calcium Oral (5 mg) 1 tablet, at bedtime The source(s) of the original Home Medication information: Not obtained. The following Medications were given to the patient in the Emergency Department: Hydralazine [IVP] IVP 10 mg, administered: 10/31/2016 5:20:00 PM The following Medications were prescribed to the patient: None.
== END 2016-10-31 18:15 | disposition short-term general hospital (02) ==
LOC: ED SRH 08:49 → TRANS SRH 12:50 → ED SRH 12:50
DX: R07.9 Chest pain, unspecified (principal); E07.9 Disorder of thyroid, unspecified; I25.2 Old myocardial infarction; Z79.82 Long term (current) use of aspirin; Z79.899 Other long term (current) drug therapy; Z91.041 Radiographic dye allergy status
CPT/HCPCS: 90100; 90616; 91320; 91556; 92610; 92720; 93140; 95059